=== PATIENT | female | born 1975 | race Caucasian/White ===

== ENCOUNTER 2022-05-16 12:07 | Outpatient (CLI) | payer BC, SELFPAY ==
[2022-05-16 12:27] LABS: Basophils Absolute Auto 0.05 K/mm3 (0.00-0.10); Basophils Percent Auto 0.7 % (0.0-1.0); Eosinophils Percent Auto 1.4 % (1.0-6.0); Hematocrit 34.1 % (35.0-49.0); Hemoglobin 10.5 g/dL (12.0-15.0); Immature Granulocyte Absolute 0.02 K/mm3 (0.00-0.00); Immature Granulocyte Percent A 0.3 % (0.0-0.0); Immature Reticulocyte Fraction 5.6 % (2.0-16.52); Lymphocytes Absolute Auto 2.19 K/mm3 (1.10-4.50); Lymphocytes Percent Auto 31.1 % (18.0-42.0); Mean Corpuscular HGB Conc 30.8 g/dL (32.0-36.0); Mean Corpuscular Hemoglobin 25.7 pg (27.0-31.0); Mean Corpuscular Volume 83.4 fL (78.0-102.0); Mean Platelet Volume 9.8 fl (9.2-11.8); Monocytes Percent Auto 5.7 % (2.0-11.0); Neutrophils Absolute Auto 4.3 K/mm3 (1.7-7.2); Neutrophils Percent Auto 60.8 % (50.0-70.0); Platelet Count Result 312 K/mm3 (150-420); Red Blood Count 4.09 M/mm3 (4.20-5.40); Red Cell Distribution Width 13.3 % (11.6-14.4); Reticulocyte Hemoglobin Conten 28.2 pg (28.0-35.0); Reticulocyte Percent 0.57 % (0.50-1.50); Reticulocytes Absolute 0.02 M/mm3 (0.02-0.1); White Blood Count 7.1 K/mm3 (4.8-10.8)
[2022-05-16 13:27] LABS: Alanine Aminotransferase 35 U/L (14-59); Albumin Level 3.6 g/dL (3.4-5.0); Alkaline Phosphatase 86 U/L (46-116); Anion Gap 7 mmol/L (8-16); Aspartate Amino Transferase 35 U/L (15-37); Bilirubin,Total 0.2 mg/dL (0.00-1.00); Blood Urea Nitrogen 11 mg/dL (7-18); Calcium 8.5 mg/dL (8.5-10.1); Carbon Dioxide 29 mmol/L (21-32); Chloride 105 mmol/L (98-108); Estimated Glomerular Filt Rate > 60; Ferritin 7 ng/mL (8-252); Glucose 84 mg/dL (70-99); Lactate Dehydrogenase 150 U/L (81-234); Osmolality Calculated 290 mOsm/kg (285-295); Potassium 4.3 mmol/L (3.5-5.1); Sodium 141 mmol/L (136-145); Thyroid Stimulating Hormone Reflex 2.95 u/IU/mL (0.36-3.74); Vitamin B12 295 pg/mL (193-986)
[2022-05-16 13:33] LABS: Erythrocyte Sedimentation Rate 18 mm/hr (0-15)
[2022-05-19 15:31] LABS: Albumin 3.9 g/dL (3.8-4.8); Alpha 1 Globulin 0.3 g/dL (0.2-0.3); Alpha 2 Globulin 0.7 g/dL (0.5-0.9); Beta 1 Globulin 0.5 g/dL (0.4-0.6); Protein, Total 6.8 g/dL (6.1-8.1)
[2022-05-20 13:36] LABS: FSH 11.6 mIU/mL (***)
== END 2022-05-16 12:08 | disposition home or self-care (01) ==
PROVIDERS: PCP Family Medicine; Visit Provider Internal Medicine Hematology & Oncology
DX: R71.0 Precipitous drop in hematocrit (principal); Z13.29 Encounter for screening for other suspected endocrine disorder
CPT/HCPCS: 36415; 80053; 82607; 82728; 83001; 83615; 84155; 84165; 84443; 85025; 85046; 85652

== ENCOUNTER 2022-05-30 09:05 | Outpatient (CLI) | payer BC, SELFPAY ==
--- NOTE | 2022-05-30 09:15 | PC.NURSE ---
here for OP infusion taken to 202 on arrival, call light given
[2022-05-30] MEDS: IRON SUCROSE COMPLEX 300 MG in SODIUM CHLORIDE 0.9% IV 250 ML 125 MG IVPB (09:35)
--- NOTE | 2022-05-30 09:46 | PC.NURSE ---
iron infusing, tolerating well, warm blanket given
--- NOTE | 2022-05-30 11:47 | PC.NURSE ---
discharged to home ambulatory, advised to watch saline lock site for s/s of infection, bleeding, return as needed, to return 06/06 for infusion #2, [id number],
== END 2022-05-30 09:06 | disposition home or self-care (01) ==
LOC: CHSTREATRM 09:11
PROVIDERS: PCP Family Medicine; Visit Provider Internal Medicine Hematology & Oncology
DX: D50.9 Iron deficiency anemia, unspecified (principal)
CPT/HCPCS: 96365; 96366; J1756; J7050

== ENCOUNTER 2022-06-06 09:14 | Outpatient (CLI) | payer BC, SELFPAY ==
[2022-06-06 09:35] VITALS: BMI 20.8
[2022-06-06 09:36] VITALS: BP 130/70; PULSE 84; RESP 14; TEMP 36.4; O2SAT 99
[2022-06-06] MEDS: IRON SUCROSE COMPLEX 300 MG in SODIUM CHLORIDE 0.9% IV 250 ML 125 MG IVPB (09:50)
--- NOTE | 2022-06-06 11:49 | PC.NURSE ---
Patient here for #2 of 4 IV Venofer infusions. Reports didn't have a problem with the last one. Education given. NO concerns voiced. IV Venofer administered. SEE MAR. Tolerated well. Safe exit of hospital. Will return 06/13/22 for #3.
== END 2022-06-06 09:15 | disposition home or self-care (01) ==
PROVIDERS: PCP Family Medicine; Visit Provider Internal Medicine Hematology & Oncology
DX: D50.9 Iron deficiency anemia, unspecified (principal)
CPT/HCPCS: 96365; 96366; J1756; J7050

== ENCOUNTER 2022-06-13 09:15 | Outpatient (CLI) | payer BC, SELFPAY ==
[2022-06-13] MEDS: IRON SUCROSE COMPLEX 300 MG in SODIUM CHLORIDE 0.9% IV 250 ML 125 MG IVPB (09:58)
[2022-06-13 10:15] VITALS: BMI 20.8
== END 2022-06-13 09:16 | disposition home or self-care (01) ==
LOC: CHSTREATRM 09:19
PROVIDERS: PCP Family Medicine; Visit Provider Internal Medicine Hematology & Oncology
DX: D50.9 Iron deficiency anemia, unspecified (principal)
CPT/HCPCS: 96365; 96366; J1756; J7050